=== PATIENT | male | born 1970 | race Caucasian/White ===

== ENCOUNTER → 2016-09-15 | Outpatient (CLI) | payer BC ==
[2016-09-15 20:49] LABS: BUN 13 mg/dL (7-18)
[2016-09-15 20:59] LABS: GFR (ESTIMATED) 65 ML/MIN (>60)
== END ==
LOC: LAB 18:10
PROVIDERS: Nurse Practitioner Family
DX: E03.9 Hypothyroidism, unspecified (principal); I10 Essential (primary) hypertension